=== PATIENT | female | born 1985 | race Caucasian/White ===

== ENCOUNTER → 2024-08-26 09:50 | Outpatient (REF) | payer OTHER, SELFPAY | LOC: MRI 3T 09:50 | PROVIDERS: ATTENDING PHYSICIAN Student in an Organized Health Care Education/Training Program; FAMILY PHYSICIAN Nurse Practitioner Family | DX: M79.671 Pain in right foot (principal) | CPT/HCPCS: 73718 ==

== ENCOUNTER → 2024-09-17 10:10 | Outpatient (REF) | payer OTHER, SELFPAY | LOC: HWRAD 10:10 | PROVIDERS: ATTENDING PHYSICIAN Nurse Practitioner Family; FAMILY PHYSICIAN Nurse Practitioner Family | DX: N93.9 Abnormal uterine and vaginal bleeding, unspecified (principal) | CPT/HCPCS: 76830; 76856 ==

== ENCOUNTER 2025-04-09 13:41 | Emergency (ER) | payer OTHER, SELFPAY ==
[2025-04-09 13:43] VITALS: BP 163/112
[2025-04-09 14:14] LABS: Hematocrit 38.8 % (37.0-47.0); Hemoglobin 13.2 g/dL (12.0-16.0); Mean Corp Hgb Conc. 34.0 g/dL (33.0-37.0); Mean Corpuscular Volume 91.7 fL (81.0-99.0); Nucleated Red Blood Cells % 0 %; Platelet Count 247 10^3/uL (130-400); Red Cell Dist. Width 12.3 % (11.5-14.5)
[2025-04-09 14:30] LABS: ALT (SGPT) 12 U/L (0-35); AST (SGOT) 18 U/L (14-36); Albumin 4.8 g/dl (3.5-5.0); Alkaline Phosphatase 54 U/L (38-126); Blood Urea Nitrogen 13 mg/dl (7-17); Calcium 9.9 mg/dl (8.4-10.2); Carbon Dioxide 28 mmol/L (22-30); Chloride 104 mmol/L (98-107); Glucose 103 mg/dl (70-99); Potassium 4.8 mmol/L (3.5-5.1); Sodium 138 mmol/L (135-145); Total Protein 7.8 g/dl (6.3-8.2); eGFR > 60.00
--- NOTE | 2025-04-09 15:32 | ED.GENMED ---
History of Present Illness
General
Chief Complaint: Vaginal Bleeding
Source: patient
Exam Limitations: none
Time Seen by Provider: 04/09/25 15:10
History of Present Illness
History of Present Illness:
40yoF with a remote history of thyroid cancer s/p thyroidectomy on levothyroxine presenting for evaluation of vaginal bleeding. Patient was recently started on oral contraceptives by her corporate development analyst for painful menses. She started this about 3
weeks ago. She began having her menstrual period on 04/01/2025. The bleeding became heavy on day 3 and has been waxing and waning since then. She initially thought her bleeding was done yesterday but she started bleeding again today. Her bleeding
was heavier today and she called the OB office and was advised to switch from tampons to pads. She has gone through 3 pads since noon today and pads were saturated each time. She denies any dizziness or syncope. She had a pelvic ultrasound in
September 2024 which showed a fibroid.
Phy Exam
General Physical Exam
General Presentation: well appearing and no apparent distress
General Skin: warm and dry
General Habitus: normal
General Mental: alert
ENT Exam
ENT Exam: normocephalic
Pulmonary Exam
Pulmonary Exam: no respiratory distress
Gastrointestinal Exam
Gastrointestinal Exam: non tender, soft and non distended
Genitourinary Exam Female
Exam Female: other (Moderate amount of vaginal bleeding noted on speculum exam)
Neurological Exam
Neurological Exam: alert
[place] Coma Scale
Eye Opening: Spontaneous
Verbal Response: Oriented
Motor Response: Obeys Commands
GCS Total Score: 15
Skin Exam
Skin Exam: normal color and warm/dry
Psychiatric Exam
Psychiatric Exam: normal mood/affect
Course
Orders/Labs/Results
Orders:
Orders
04/09/25 13:58
CBC/With Diff [Complete Blood Count/With Diff] Urgent
CMP [Comprehensive Metabolic Panel] Urgent
HCG, Serum Qualitative Screen Urgent
Comment: ADD ON
TSH Urgent
Comment: ADD ON
04/09/25 15:16
Add On- LAB Urgent
Tests Added?: qualitative HCG
04/09/25 15:31
Add On- LAB Urgent
Tests Added?: TSH
Pelvis & Transvaginal US [US Pelvis W Transvag Combined] Urgent
Comment:
Reason For Exam: vaginal bleeding
Abnormal Lab Results
04/09/25
13:58
MCH 31.2 H pg
(27.0-31.0)
MPV 10.7 H fL
(7.4-10.4)
Lymphocytes % 18.2 L %
(20.5-51.1)
Glucose 103 H mg/dl
(70-99)
TSH 4.78 H uIU/ml
(0.47-4.68)
04/09/25 13:58
04/09/25 13:58
Vital Signs
Initial and Last Documented VS:
Initial Vital Signs
Temp Pulse Resp BP Pulse Ox
98.3 F 110 15 163/112 99
04/09/25 13:43 04/09/25 13:43 04/09/25 13:43 04/09/25 13:43 04/09/25 13:43
Last Documented Vital Signs
Temp Pulse Resp BP Pulse Ox
98.3 F 82 16 132/94 100
04/09/25 13:43 04/09/25 17:48 04/09/25 17:48 04/09/25 17:48 04/09/25 17:48
MDM/Problems Addressed
Differential Diagnosis Includes:
40yoF here with vaginal bleeding since 04/01. Bleeding heavier today and went through 3 pads in the past hour. Recently started on OCPs 3 weeks ago. HR 110 in triage. She is well appearing in no distress. Moderate ammount of bleeding noted on speculum
exam. Differential diagnosis includes but is not limited to: dysfunctional uterine bleeding, side effect of OCP, uterine fibroids, acute blood loss anemia
Initial ED plan: Workup initiated in triage. Hemoglobin is normal at 13.2. Will check HCG, TSH, and pelvic ultrasound.
*Pulse Oximetry
SaO2: 99
Oxygen Mode of Delivery: Room air
Patient hypoxic: no (99%)
*Critical Care Note
Total Time (30-74mins, 75-104mins- exclusive of procedures): Not Applicable
Update Note
Update Note:
HCG negative. TSH mildly elevated at 4.78. Ultrasound shows endometrium of 4mm and R sided fibroid, overall stable from prior US in September. Case discussed with Dr. Dai who recommends tapering her OCP (take 3 pills today, 2 pills tomorrow, and
then back to 1 pill daily and skip placebo week). Recommendations discussed with patient. She does have an appt scheduled in 1 week with the gynecology office. ED return precautions reviewed and patient discharged in stable condition.
ED Attending Note
-
Portions of this chart may have been created with voice recognition software.� Occasional wrong word or��sound alike� substitutions may have occurred due to the inherent limitations of voice recognition software.
Discharge Plan
Departure
Patient Disposition: Home (Routine Discharge)
Date of Disposition: 04/09/25
Time of Disposition: 18:15
Patient with high blood pressure during this ER visit?: No
Discharge Problem:
Menorrhagia
Instructions: Heavy Periods (DC)
Prescriptions:
No Action
levothyroxine [Synthroid] 137 MCG tablet
1 tab PO .TUE/////
levothyroxine [Synthroid] 137 MCG tablet
1.5 tab PO .QMONDAY
ibuprofen-famotidine [Duexis] 1 EACH tablet
1 tab PO TID
Referrals:
Melanie Dai MD [Active, Gynecology]
Tabby Vasquez CRNP [Family Provider]
Activity Restrictions/Additional Instructions:
Take 3 pills of your control today, 2 pills tomorrow, and then go back to 1 pill daily. You should skip your placebo week and go directly to the next pack.
Please follow-up with your corporate development analyst. Return to the ER with any new or worsening symptoms including dizziness or passing out.
Interventions
Interventions:
*Risk Screen - Suicide Last Done: 04/09/25 13:43
*General Assessment Last Done: 04/09/25 13:43
*Neglect/Abuse Screening Last Done: 04/09/25 13:43
*ED- Fall Risk Assessment Last Done: 04/09/25 15:40
*ED COVID-19 Vaccine History Last Done: 04/09/25 13:43
*Nursing Disposition Last Done: 04/09/25 18:26
ED-Female Genitourinary Assessment Last Done: 04/09/25 15:40
Discharge Date and Time
Discharge Date/Time: 04/09/25 18:28
Print Language: FRENCH
--- NOTE | 2025-04-09 15:35 | EDRN ---
Jesus Yanez PA in to see pt and did vaginal exam at this time w/ help of this RN.
[2025-04-09 15:40] VITALS: BP 129/91; BMI 30.1
--- NOTE | 2025-04-09 16:26 | EDRN ---
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
[2025-04-09 17:29] LABS: HCG, Serum Qualitative Screen Negative
[2025-04-09 17:48] VITALS: BP 132/94
[2025-04-09 18:03] LABS: TSH 4.78 uIU/ml (0.47-4.68)
== END 2025-04-09 18:28 | disposition home or self-care (01) ==
LOC: EMR 13:41
PROVIDERS: Emergency Medicine; EMERGENCY PHYSICIAN Student in an Organized Health Care Education/Training Program; FAMILY PHYSICIAN Nurse Practitioner Family
DX: N92.0 Excessive and frequent menstruation with regular cycle (principal); D25.9 Leiomyoma of uterus, unspecified; E89.0 Postprocedural hypothyroidism; Z79.3 Long term (current) use of hormonal contraceptives; Z79.899 Other long term (current) drug therapy
CPT/HCPCS: 99284; 76830; 76856; 80053; 84443; 84703; 85025

== ENCOUNTER 2025-06-11 06:08 | Day surgery (SDC) | payer OTHER, SELFPAY ==
[2025-05-30 11:23] LABS: Hematocrit 40.0 % (37.0-47.0); Hemoglobin 12.9 g/dL (12.0-16.0); Mean Corp Hgb Conc. 32.3 g/dL (33.0-37.0); Mean Corpuscular Volume 91.3 fL (81.0-99.0); Nucleated Red Blood Cells % 0 %; Platelet Count 245 10^3/uL (130-400); Red Cell Dist. Width 12.4 % (11.5-14.5)
[2025-05-30 11:51] LABS: Blood Urea Nitrogen 12 mg/dl (7-17); Calcium 9.2 mg/dl (8.4-10.2); Carbon Dioxide 27 mmol/L (22-30); Chloride 103 mmol/L (98-107); Glucose 85 mg/dl (70-99); Potassium 4.7 mmol/L (3.5-5.1); Sodium 137 mmol/L (135-145); eGFR > 60.00
[2025-05-30 12:02] LABS: Beta HCG Quantitative < 2.39 mIU/ml
[2025-05-30 13:48] VITALS: BMI 29.9
[2025-06-11] VITALS (8 sets, daily range): BP systolic 122–143; BP diastolic 77–88; BMI 29.9
[2025-06-11] MEDS: NEURONTIN 300 MG PO (07:10)
[2025-06-11] MEDS: TYLENOL 1000 MG PO (07:10)
[2025-06-11] MEDS: NORMOSOL-R/PLASMALYTE-A 1000 IV (07:26)
--- NOTE | 2025-06-11 09:46 | W.IMMPOSTOP ---
Surgical Immed Post Op Note
-
Primary Surgeon: Jaylene Nice DO
Email Campaign Manager: KIMBERLI Beryr
Pre-op Diagnosis: menorrhagia, uterine fibroid
Post-op Diagnosis: same; abdominal /pelvic adhesions
Procedure Performed: Robotic total laparoscopic hysterectomy bilateral salpingectomy, lysis adhesions
Anesthesia Type: general ET Dr. Cao
Specimen / Cultures: uterus, cervix, bilateral fallopian tubes
Estimated Blood Loss: 15mL
Urine output: 200mL, clear yellow urine
Complications: none
Operative Findings: Uterus 10cm with fibroid. Fallopian tubes with prior partial salpingectomy. Small omental adhesion to anterior abdominal wall-lysed. Bladder adhesions near lower uterine segment. Normal appearing bilateral ovaries.
Counts correct times 2.
Stable to recovery room.
[2025-06-11] MEDS: DILAUDID 0.5 MG IV (09:54)
[2025-06-11] MEDS: ROXICODONE 5 MG PO (10:56)
[2025-06-11] MEDS: TYLENOL 650 MG PO (12:05)
[2025-06-11] MEDS: ZOFRAN 4 MG IV (13:10)
== END 2025-06-11 13:20 | disposition home or self-care (01) ==
LOC: SDS 06:08
PROVIDERS: ATTENDING PHYSICIAN Obstetrics & Gynecology; FAMILY PHYSICIAN Nurse Practitioner Family
DX: D25.1 Intramural leiomyoma of uterus (principal); N80.03 Adenomyosis of the uterus; N92.0 Excessive and frequent menstruation with regular cycle; K66.0 Peritoneal adhesions (postprocedural) (postinfection); N32.89 Other specified disorders of bladder; N73.6 Female pelvic peritoneal adhesions (postinfective)
CPT/HCPCS: 58571; 80048; 84702; 85025; 86850; 86900; 86901; 88307